=== PATIENT | male | born 1980 | race Caucasian/White ===

== ENCOUNTER 2024-08-10 14:59 | Outpatient (OUT) | payer OTHER, SELFPAY ==
--- NOTE | 2024-08-10 | CT_ITS ---
[address] [address] Patient Name: JOGRE JAIN MRN: [id number] date: 1980 Sex: M Assigned Patient Location: CT Current Patient Location: Accession/Order Number: [id number] Exam Date: 08/10/2024 16:10 Report Date: 08/11/2024 09:05 At the request of: PREETI MENJIVAR Procedure: CT abdomen pelvis w con EXAMINATION: CT abdomen pelvis w con HISTORY: Hernia ; possible umbilical hernia (prior umbilical hernia repair) COMPARISON: No relevant comparison available. TECHNIQUE: Axial, Coronal, and Sagittal images were obtained without and/or with IV contrast as indicated by examination type. Dose reduction techniques were achieved by using automated exposure control and/or adjustment of mA and/or kV according to patient size and/or use of iterative reconstruction technique. FINDINGS: LUNG BASES: No visible pulmonary or pleural disease. LIVER: No enlargement, atrophy, suspicious density, or significant focal lesion. BILIARY: No dilatation or calcification. PANCREAS: No lesion, fluid collection, or abnormal duct dilatation. SPLEEN: No enlargement or focal lesion. ADRENALS: No mass or enlargement. KIDNEYS: No mass, obstruction, or calcification. BOWEL/MESENTERY: No visible mass, obstruction, or bowel wall thickening. AORTA/VASCULAR: No aneurysm or dissection. RETROPERITONEUM: No mass or adenopathy. LYMPH NODES: No adenopathy. URINARY BLADDER: No visible focal wall thickening, lesion, or calculus. PELVIC ORGANS: No visible mass. Pelvic organs appropriate for patient age. ABDOMINAL WALL: Supra umbilical fat filled hernia just right of midline at the medial margin of the right rectus abdominis muscle, 6.0 x 3.5 x 3.2 cm. 1.1 cm diameter neck. No strangulation. BONES: No bony lesion or fracture. OTHER: Negative. CT/CT abdomen pelvis w con IMPRESSION: 1. Nonstrangulated fat filled supraumbilical hernia as detailed above. Electronically authenticated by: SILAS PERALES Date: 08/11/2024 09:05
== END 2024-08-10 15:00 | disposition home or self-care (01) ==
LOC: CT 14:59
PROVIDERS: Visit Provider Surgery
DX: K43.2 Incisional hernia without obstruction or gangrene (principal)
CPT/HCPCS: 74177; Q9967